=== PATIENT | male | born 1970 | race American Indian/Alaskan Native ===

== ENCOUNTER 2017-08-09 09:52 | Outpatient (CLI) | payer OTHER ==
--- NOTE | 2017-08-09 11:06 | XRay Report ---
Right knee 2 views: History: Right knee pain. Findings: Spur anterior patella. No fracture dislocation or joint effusion. Impression: No evidence of acute fracture.
--- NOTE | 2017-08-09 11:07 | XRay Report ---
Lumbar spine 3 views: History: Low back pain. Findings: Normal height of vertebral bodies and intervertebral disc be a sclerotic articular surfaces with anterior osteophyte at L4 vertebral body. No fracture. No soft tissue calcification. Impression: Degenerative changes lumbar spine.
--- NOTE | 2017-08-09 11:09 | XRay Report ---
Right hip 2 views: History: Right hip pain. Findings: Mild arthritic changes are noted at the hip joint. No fracture dislocation or soft tissue calcification. Impression: Mild degenerative changes right hip.
== END 2017-08-09 09:53 | disposition home or self-care (01) ==
LOC: XRAY 09:52
PROVIDERS: ATTEND Internal Medicine
DX: M16.11 Unilateral primary osteoarthritis, right hip (principal); M47.896 Other spondylosis, lumbar region; I11.0 Hypertensive heart disease with heart failure; I50.9 Heart failure, unspecified; R09.89 Other specified symptoms and signs involving the circulatory and respiratory systems; J90 Pleural effusion, not elsewhere classified; G47.33 Obstructive sleep apnea (adult) (pediatric); F32.9 Major depressive disorder, single episode, unspecified; H53.8 Other visual disturbances
CPT/HCPCS: 72100

== ENCOUNTER 2020-03-12 08:02 | Outpatient (CLI) | payer OTHER ==
--- NOTE | 2020-03-12 12:19 | XRay Report ---
CERVICAL SPINE 4 VIEWS INDICATION / CLINICAL INFORMATION: neck PAIN. COMPARISON: None available. FINDINGS: C7 is not well seen on the lateral views. There is moderate spondylosis from C4 to C7, with hypertrop hic spurring at C2-3 as well. No appreciable fracture or subluxation. Signer Name: Jonas Cornejo MD Signed: 03/12/2020 12:14 PM Workstation Name: [id number]
--- NOTE | 2020-03-12 12:19 | XRay Report ---
CERVICAL SPINE 4 VIEWS INDICATION / CLINICAL INFORMATION: neck PAIN. COMPARISON: None available. FINDINGS: C7 is not well seen on the lateral views. There is moderate spondylosis from C4 to C7, with hypertrop hic spurring at C2-3 as well. No appreciable fracture or subluxation. Signer Name: Jonas Cornejo MD Signed: 03/12/2020 12:14 PM Workstation Name: [id number]
== END 2020-03-12 08:03 | disposition home or self-care (01) ==
LOC: XRAY 08:02
PROVIDERS: ATTEND Internal Medicine
DX: M47.812 Spondylosis without myelopathy or radiculopathy, cervical region (principal); M46.02 Spinal enthesopathy, cervical region; F32.9 Major depressive disorder, single episode, unspecified; F43.10 Post-traumatic stress disorder, unspecified
CPT/HCPCS: 72040; 72100

== ENCOUNTER 2020-07-23 08:45 | Outpatient (CLI) | payer OTHER ==
--- NOTE | 2020-07-23 10:01 | XRay Report ---
CHEST 2 VIEWS INDICATION / CLINICAL INFORMATION: SHORTNESS OF BREATH. COMPARISON: None available. FINDINGS: SUPPORT DEVICES: None. HEART / MEDIASTINUM: No significant abnormality. LUNGS / PLEURA: No significant pulmonary or pleural abnormality. No pneumothorax. ADDITIONAL FINDINGS: No significant additional findings. IMPRESSION: 1. No acute findings. Signer Name: Odell Long MD Signed: 07/23/2020 9:57 AM Workstation Name: [email or web address]
== END 2020-07-23 08:46 | disposition home or self-care (01) ==
LOC: XRAY 08:45
PROVIDERS: ATTEND Internal Medicine
DX: R06.02 Shortness of breath (principal)
CPT/HCPCS: 71046